=== PATIENT | female | born 1965 | race Asian ===

== ENCOUNTER 2018-08-13 20:41 | Emergency (ER) | payer MEDICAID, OTHER ==
[~2018-08-13] VITALS: Ht 152.4 cm; Wt 54.4 kg
[2018-08-13 21:03] VITALS: BP 129/92
[2018-08-13] MEDS ORDERED: HYDROcodone-ACET 5/325MG TAB PO ONE (23:00)
[2018-08-13] MEDS ORDERED: BACLOFEN 10 MG TAB PO ONE (23:00)
== END 2018-08-13 23:35 | disposition home or self-care (01) ==
LOC: ER 20:41
DX: S09.90XA Unspecified injury of head, initial encounter (principal); S00.93XA Contusion of unspecified part of head, initial encounter; M62.838 Other muscle spasm; W19.XXXA Unspecified fall, initial encounter; Y93.89 Activity, other specified; Y99.8 Other external cause status; Y92.89 Other specified places as the place of occurrence of the external cause
CPT/HCPCS: 70450; 72125